=== PATIENT | female | born 1990 ===

== ENCOUNTER 2016-09-03 16:00 | Emergency (ER) | payer OTHER ==
[2016-09-03 16:44] VITALS: BP 110/66
== END 2016-09-03 17:01 | disposition left against medical advice (07) ==
LOC: UCCORT 16:00
DX: R10.9 Unspecified abdominal pain (principal); Z53.21 Procedure and treatment not carried out due to patient leaving prior to being seen by health care provider
CPT/HCPCS: 99202; G0463

== ENCOUNTER 2018-12-15 18:49 | Emergency (ER) | payer OTHER ==
[2018-12-15 20:16] VITALS: BP 114/72
[2018-12-15] MEDS ORDERED: Acetaminophen TAB* 325 MG PO ONE (20:50)
--- NOTE | 2018-12-15 21:04 | UC ---
UC General HPI - HPI Summary HPI Summary: Patient presents to urgent care requesting a note for work tonight. Patient is a 20-year-old female who's had ongoing progressive myalgias and arthralgias for the last 5 months. Patient states she has been to the emergency department twice was recently on 12/08/18. Patient states he told her it could be related to her trazodone she has stopped taking that for sleep. 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 Patient states she gets poor sleep during the day She lives with her mother. Patient has a 2-year-old and a 4-year -old. Patient states her mom's help to take a 2-year-old with a 4-year-old comes to daycare but she is frequently woken up. Patient states she's been taking ibuprofen 800 mg for pain. Last dose was at 4 AM today. Patient states she doesn't have money to buy [id number] Tylenol. Patient does have an appointment with her PCP this coming Tuesday. Pt denies SI. States lives with mother who helps wiht her kids. Patient denies fevers or chills. Patient denies headache. No vision changes. head congestion. No nausea vomiting. No abdominal pain. Patient does have a prolapsed bladder and is supposed to see specialist for this. Patient denies any diarrhea. No urinary symptoms. Patient states last night during her ankle so bad that she was in tears. Patient's posterior work this evening and then has an estimated soft. Patient requesting a note for work. - History of Current Complaint Chief Complaint: UCGeneralIllness Stated Complaint: BODY ACHES,JOINT PAIN Time Seen by Provider: 12/15/18 20:21 Hx Obtained From: Patient, Medical Records Hx Last Menstrual Period: 12/02/18 Pain Intensity: 8 - Allergy/Home Medications Allergies/Adverse Reactions: Allergies Allergy/AdvReac Type Severity Reaction Status Date / Time codeine Allergy Vomiting Verified 12/15/18 20:17 Home Medications: Home Medications Copper (Iud) [Paragard IUD] 1 unit IU DAILY 12/15/18 [History Confirmed 12/15/18 ] Cyanocobalamin TAB* [Vitamin B12 TAB*] 1,000 mcg PO DAILY 12/15/18 [History Confirmed 12/15/18] Ibuprofen TAB* [Motrin TAB* 800 MG] 800 mg PO ONCE 12/15/18 [History Confirmed 12/15/18] Pantoprazole TAB * [Protonix TAB*] 40 mg PO DAILY 12/15/18 [History Confirmed ] PMH/Surg Hx/FS Hx/Imm Hx Previously Healthy: Yes Psychological History: Anxiety, Depression - Surgical History Surgical History: Yes Surgery Procedure, Year, and Place: Blood clot removed from uterus when pt 17 y/ o. 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 [employer] Lives: With Family Alcohol Use: None Substance Use Type: None Smoking Status (MU): Never Smoked Tobacco - Immunization History Most Recent Influenza Vaccination: NONE Most Recent Tetanus Shot: UTD Review of Systems All Other Systems Reviewed And Are Negative: Yes Constitutional: Positive: Negative Skin: Positive: Negative Eyes: Positive: Negative ENT: Positive: Negative Respiratory: Positive: Negative Cardiovascular: Positive: Negative Gastrointestinal: Positive: Negative Genitourinary: Positive: Negative - Referred to me about the last Motor: Positive: Other Musculoskeletal: Positive: Other: Physical Exam - Summary Physical Exam Summary: Vital Signs Reviewed: Yes A+Ox3, no distress Eyes: Conjunctiva Clear, LAVERNE. EOM intact and full ENT: Hearing grossly normal TM x 2 clear, mmoist, uvula midline, no exudate, no erythema Neck: Positive: Supple Respiratory: Positive: No respiratory distress, No accessory muscle use + CTA throughout no w/r Cardiovascular: RRR nl s1, s2 no m/r CBT <2 sec abd soft + BS nt/nd no guarding, no distension Musculoskeletal Exam: CARL x 4 without difficulty Strength Intact, ROM Intact Neurological: Positive: Alert, + sensation throughout Psychological: Positive: Normal Response To monument letterer Skin: Positive: no rash, no ecchymosis Triage Information Reviewed: Yes Vital Signs: Initial Vital Signs Temp 98.1 F 12/15/18 20:08 Pulse 73 12/15/18 20:08 Resp 16 12/15/18 20:08 BP 114/72 12/15/18 20:08 Pulse Ox 100 12/15/18 20:08 Course/Dx - Course Course Of Treatment: Patient presented to urgent care requesting a note for work. Patient has been under significant stress recently and she is going through divorce, has developed chronic pain in her muscles and joints, is living with her mother who smokes which irritates her asthma, has 2 children ages 2 and 4, and is in research staff member worker. Patient states she continued emergency department twice for her muscle joint pain. She was advised to stop her trazodone as this may be the cause. Patient states that has not helped her pain but now she is unable to sleep. Patient states she was in tears last night because of pain because her H &H up tomorrow. Patient states she is post to work [email or web address] and then has 2 days off. Patient does have an appointment with her primary care provider on . Patient without a new or different symptoms to states exacerbation of previous. Patient's been taking Motrin for which she has prescription but no Tylenol she cannot afford it. On exam vital signs are stable. Patient is not in extremis. Will go for tonight. Discussed with patient that this is not likely to happen on future visits. Encourage patient to continue past. Stay well hydrated. And she must keep her appointment Tuesday. Patient states understanding and appreciation of plan. - Diagnoses Provider Diagnosis: Myalgia, Arthralgia Discharge ED - Sign-Out/Discharge Documenting (check all that apply): Patient Departure - asplenia tomorrow. All imaging exams completed and their final reports reviewed: No Studies - Discharge Plan Condition: Stable Disposition: HOME Prescriptions: Acetaminophen [Athenol] 650 mg PO Q8HR PRN #30 tablet PRN Reason: Pain - Moderate Patient Education Materials: Musculoskeletal Pain (ED) Forms: *Work Release Referrals: Pretty Power MD [Primary Care Provider] - Additional Instructions: -Okay to alternate ibuprofen (Advil, Motrin) and Tylenol (acetaminophen) every 3 hours for pain or fever. Take with food. Do NOT take for more than 4-5 days. - Get plenty of restful sleep - Stay well-hydrated - Take warm showers was slow gentle stretching exercises - It is very important to keep her appointment on Tuesday as scheduled with her primary care provider -As discussed, contact your counselor and schedule follow-up appointment. - Billing Disposition and Condition Condition: STABLE Disposition: Home
== END 2018-12-15 21:00 | disposition home or self-care (01) ==
LOC: UCCORT 18:49
DX: M79.10 Myalgia, unspecified site (principal); M25.50 Pain in unspecified joint; Z88.5 Allergy status to narcotic agent
CPT/HCPCS: 99212; A9270-GY; G0463